=== PATIENT | male | born 1980 | race African-American/Black ===

== ENCOUNTER 2022-11-13 10:38 | Emergency (ER) | payer OTHER ==
[~2022-11-13] VITALS: Ht 182.9 cm; Wt 78.1 kg
[2022-11-13 10:45] VITALS: TEMP 98.4
[2022-11-13 12:31] VITALS: BP 113/71
== END 2022-11-13 12:31 | disposition home or self-care (01) ==
LOC: ED 10:38
DX: T15.91XA Foreign body on external eye, part unspecified, right eye, initial encounter (principal)
CPT/HCPCS: 99283